=== PATIENT | male | born 1940 | race Caucasian/White ===

== ENCOUNTER 2017-05-21 07:32 | Emergency (ER) | payer OTHER ==
[~2017-05-21] VITALS: Ht 182.9 cm; Wt 117.9 kg
[~2017-05-21 07:32] MED LIST: ANTIVERT12.5 MG PO; ASPIRIN EC81 M1 PO; COZAAR 25 MG TA25 M2 PO; FISH OIL 1,0001 EAC5 PO; FISH OIL 1,2001 EAC4 PO; GLUCOPHAGE XR500 MG PO; GLUCOPHAGE500 MG PO; GLUCOSAMINE HC500 MG PO; GLUCOSAMINE1000 MG; GLUCOSAMINE1000 MG PO; GLUCOTROL5 MG PO; LISINOPRIL10 MG PO; LOPRESSOR 12.12.5 MG PO; LOPRESSOR25 PO; LOW DOSE ASPIRI81 M1 PO; MECLIZINE HCL12.5 MG PO; NITROGLYCERIN0.4 MG SUBLING; NORCO 5-325 TA1 EACH PO; PRAVACHOL40 MG PO; PRAVASTATIN SOD40 MG PO; SIMVASTATIN40 MG; VITAMIN D-32000 UNIT PO; ZOFRAN4 MG PO
[2017-05-21 07:53] LABS: ABSOLUTE BASOPHILS 0.1 thou/uL (0.0-0.2); ABSOLUTE EOSINOPHILS 0.1 thou/uL (0.0-0.7); ABSOLUTE LYMPHOCYTES 1.6 thou/uL (0.8-5.3); ABSOLUTE MONOCYTES 0.6 thou/uL (0.0-1.2); ABSOLUTE NEUTROPHILS 4.1 thou/uL (1.6-8.1); HEMOGLOBIN 16.9 gm/dL (14.0-18.0); LYMPHOCYTES 24.7 %; MCH 30.5 pg (26.0-34.0); MCHC 33.9 g/dL (28.0-37.0); MCV 90.1 fL (80.0-100.0); MONOCYTES 8.9 %; MPV 9.3 fl. (7.2-11.1); NUCLEATED RBCS 0 /100WBC; PLATELET COUNT* 159 thou/uL (150-400); POLYS 63.4 %; RBC 5.54 mil/uL (4.50-6.00); RDW-CV 13.8 % (10.5-14.5); WBC 6.4 thou/uL (4.0-11.0)
[2017-05-21 08:04] LABS: ANION GAP 8 mmol/L (7-16); BUN 17 mg/dL (7-18); CALCIUM 8.6 mg/dL (8.5-10.1); CHLORIDE 106 mmol/L (98-107); CO2 26 mmol/L (21-32); CREATININE 1.2 mg/dL (0.6-1.3); GLUCOSE 165 mg/dL (70-99); POTASSIUM 4.1 mmol/L (3.5-5.1); SODIUM 140 mmol/L (136-145)
[2017-05-21 08:05] LABS: INR 1.1
[2017-05-21 08:24] LABS: ALBUMIN 3.7 g/dL (3.4-5.0); ALKALINE PHOSPHATASE 83 U/L (46-116); CK-MB MASS 0.7 ng/mL (<0.5-3.6); LIPASE 87 U/L (73-393); MAGNESIUM 1.6 mg/dL (1.8-2.4); NT-PRO BRAIN NAT PEPTIDE 88 pg/mL (<300); SGOT 31 U/L (15-37); SGPT 34 U/L (30-65); TOTAL BILIRUBIN 0.8 mg/dL (<0.1-1.0); TOTAL PROTEIN 7.8 g/dL (6.4-8.2); TROPONIN-I LEVEL <0.06 ng/mL (<0.06)
[2017-05-21 10:16] VITALS: BP 156/88
--- NOTE | 2017-05-21 11:51 | EKG ---
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 : 1940 Requested By: Brian Christiansen Order Number: [id number] MD: Lance Dillon Measurements Intervals [place] Rate: 83 P: 12 [place]: 191 QRS: -21 QRSD: 81 T: 125 QT: 347 QTc: 408 Interpretive Statements Sinus rhythm Abnormal R-wave progression, late transition Inferior infarct, old Lateral leads are also involved Baseline wander in lead(s) I,II,aVR,V2 Compared to ECG 10/29/2015 06:42:09 Atrial premature complex(es) no longer present Possible ischemia no longer present Myocardial infarct finding still present Electronically Signed On 05-21-2017 11:50:59 MICROMATIC HONE OPERATOR by Lance Dillon [email or web address] <ELECTRONICALLY SIGNED> By: Lance Dillon MD, FACC 05/21/17 1150 0738 0738 Lance Dillon MD, FAC /EPI
--- NOTE | 2017-05-22 10:58 | EKG ---
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 05/22/17 1058 1001 00 Joselito Jones MD, FACC /EPI
== END 2017-05-21 10:26 | disposition home or self-care (01) ==
LOC: M.ERS 07:32
PROVIDERS: Family Medicine
DX: R07.89 Other chest pain (principal); E11.9 Type 2 diabetes mellitus without complications; Z87.891 Personal history of nicotine dependence; Z85.46 Personal history of malignant neoplasm of prostate; Z95.1 Presence of aortocoronary bypass graft

== ENCOUNTER 2017-10-10 13:59 | Inpatient (IN) | payer OTHER ==
[~2017-10-10] VITALS: Ht 182.9 cm; Wt 119.3 kg
[2017-10-10 14:02] VITALS: BP 176/85
[2017-10-10 14:17] LABS: ABSOLUTE BASOPHILS 0.1 thou/uL (0.0-0.2); ABSOLUTE EOSINOPHILS 0.1 thou/uL (0.0-0.7); ABSOLUTE LYMPHOCYTES 1.7 thou/uL (0.8-5.3); ABSOLUTE MONOCYTES 0.5 thou/uL (0.0-1.2); ABSOLUTE NEUTROPHILS 4.5 thou/uL (1.6-8.1); BASOPHILS 1.1 %; EOSINOPHILS 2.1 %; HEMATOCRIT 49.3 % (42.0-52.0); HEMOGLOBIN 16.7 gm/dL (14.0-18.0); LYMPHOCYTES 24.4 %; MCV 91.2 fL (80.0-100.0); MONOCYTES 7.7 %; MPV 8.5 fl. (7.2-11.1); NUCLEATED RBCS 0 /100WBC; PLATELET COUNT* 170 thou/uL (150-400); POLYS 64.7 %; RBC 5.41 mil/uL (4.50-6.00); RDW-CV 13.8 % (10.5-14.5)
[2017-10-10 14:27] LABS: ANION GAP 6 mmol/L (7-16); BUN 15 mg/dL (7-18); CALCIUM 8.8 mg/dL (8.5-10.1); CHLORIDE 104 mmol/L (98-107); CO2 31 mmol/L (21-32); CREATININE 1.2 mg/dL (0.6-1.3); GLUCOSE 199 mg/dL (70-99); POTASSIUM 3.9 mmol/L (3.5-5.1); SODIUM 141 mmol/L (136-145)
[2017-10-10 14:29] LABS: APTT 25.9 Seconds (25.0-31.3); INR 1.1; PROTIME 10.8 Seconds (9.20-11.50)
[2017-10-10 14:45] LABS: ALBUMIN 3.6 g/dL (3.4-5.0); ALKALINE PHOSPHATASE 80 U/L (46-116); CK-MB MASS 1.2 ng/mL (<0.5-3.6); LIPASE 86 U/L (73-393); MAGNESIUM 1.6 mg/dL (1.8-2.4); NT-PRO BRAIN NAT PEPTIDE 194 pg/mL (<300); SGOT 36 U/L (15-37); SGPT 38 U/L (30-65); TOTAL BILIRUBIN 0.6 mg/dL (<0.1-1.0); TOTAL PROTEIN 7.6 g/dL (6.4-8.2); TROPONIN-I LEVEL <0.06 ng/mL (<0.06)
[2017-10-10 16:17] VITALS: BP 165/88
--- NOTE | 2017-10-10 16:54 | EKG ---
[place] [address] ELECTROCARDIOGRAM REPORT Name: MELVIN RAMOS Room: [address] IN .R.#: [id number] Admission: 10/10/17 Attend Phys: Morgan Clark Discharge: Date of : 44 Report #: [id number] THIS REPORT FOR: //name// [facility] ED Test Date: 2017-10-10 Test Time: 14:02:25 Pat Name: MELVIN RAMOS Department: Room: Gender: Senior Center Director: Darwin REYNOLDS : 1940 Requested By: Brian Christiansen Order Number: [id number] MD: Syed Colvin Measurements Intervals [place] Rate: 72 P: 12 CT: 185 QRS: -18 QRSD: 87 T: 143 QT: 373 QTc: 409 Interpretive Statements Sinus rhythm Inferior infarct, old Lateral leads are also involved Compared to ECG 05/21/2017 10:01:01 No significant changes Electronically Signed On 10-10-2017 16:54:35 CDT by Syed Colvin [email or web address] <ELECTRONICALLY SIGNED> By: Syed Colvin MD, [facility] 10/10/17 5744 1402 140 Syed Colvin MD, [facility] /EPI
[2017-10-10] MEDS ORDERED: LOPRESSOR25 PO (18:10)
--- NOTE | 2017-10-10 18:23 | NUR ---
ASSUMED CARE OF PATIENT AT 1620 WHEN TRANSFERRED TO ROOM 222 FROM EMERGENCY DEPARTMENT. PATIENT AWAKE, ALERT, AND ORIENTED APPROPRIATELY. ADMISSION ASSESSMENT AND DOCUMENTATION COMPLETED AND CHARTED. VITAL SIGNS STABLE. OXYGEN SATURATION WITHIN NORMAL LIMITS ON 2 LPM PER NASAL CANULA. PATIENT IS TO TRANSFER AND AMBULATE WITH STANDBY ASSISTANCE FROM STAFF, HAS BEEN EDUCATED ON HOW TO USE CALL LIGHT APPROPRIATELY. DENIES NEEDS AT THIS TIME. CALL LIGHT WITHIN REACH. NURSING WILL CONTINUE TO MONITOR.
[2017-10-10 20:00] VITALS: BP 147/68
[2017-10-11] VITALS (8 sets, daily range): BP systolic 119–169; BP diastolic 65–97
--- NOTE | 2017-10-11 05:03 | NUR ---
ASSUMED CARE AROUND 1930. PT A/OX4 AND PLEASANT. TELE MONITOR TRACING SR. VSS, AFEBRILE. ON ROOM AIR. REPORTS AYALA. IV SALINE LOCKED. REPORTED INTERMITTENT "SHARP" CHEST PAIN THAT IS WORSE WHEN HE PRESSES ON LEFT SIDE OF CHEST. UP SBA. SEE CHARTING. CALL LIGHT IN REACH, WILL CONTINUE WITH PLAN OF CARE.
--- NOTE | 2017-10-11 10:42 | EKG ---
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 : 1940 Requested By: Brian Christiansen Order Number: [id number] MD: Joselito Jones Measurements Intervals [place] Rate: 68 P: 12 [place]: 193 QRS: -26 QRSD: 83 T: 135 QT: 392 QTc: 417 Interpretive Statements Sinus rhythm Inferior infarct, old septal infarct, old Lateral leads are also involved Compared to ECG 10/10/2017 14:02:25 No significant changes Electronically Signed On 10-11-2017 10:41:54 CDT by Joselito Jones [email or web address] <ELECTRONICALLY SIGNED> By: Joselito Jones MD, [facility] 10/11/17 1041 0515 0515 Joselito Jones MD, [facility] /EPI
--- NOTE | 2017-10-11 11:02 | NUR ---
INITIAL ASSESSMENT: Pt evaluated for d/c planning needs. Reviewed chart and spoke with nurse and pt. Pt is alert and oriented. Pt lives alone and was independent with ADL's prior to admission to the hospital. Pt remains active in the community and is still driving. Pt said he was hospitalized at [place] about 9 months ago and returned home with home health. Pt does not recall name of agency. Pt has walker and cane at home. Pt plans on returning home on d/c from hospital. Will remain available to assist as needed.
--- NOTE | 2017-10-11 17:54 | 2DMMODE ---
[place] [address] 2 D/M-MODE ECHOCARDIOGRAM Name: MELVIN RAMOS Room: [facility] IN [facility]#: [id number] Admission: 10/10/17 Attend Phys: Von Licea Discharge: Date of : 44 Date of Service: 10/11/17 1753 Report #: [id number] THIS REPORT FOR: //name// APPROVED REPORT Study performed: 10/11/2017 13:13:40 EXAM: Comprehensive 2D, Doppler, and color-flow Echocardiogram Patient Location: In-Patient Room #: 222 Status: routine BSA: 2.41 HR: 67 bpm BP: 141/65 mmHg Rhythm: NSR Other Information Study Quality: Fair Indications CAD Chest Pain 2D Dimensions LVEF(%): 73.69 (>50%) IVSd: 15.07 (7-11mm) LVOT Diam: 23.06 (18-24mm) LVDd: 56.60 mm PWd: 13.42 (7-11mm) Ascending Ao: 36.52 (22-36mm) LVDs: 32.15 (25-40mm) Aortic Root: 36.47 mm Queen's LVEF: 73.69 % Volumes Left Atrial Volume (Systole) LA ESV Index: 22.90 mL/m2 Aortic Valve AoV Peak Mitchell.: 1.27 m/s AO Peak Gr.: 6.46 mmHg LVOT Max P.21 mmHg AO Mean Gr.: 3.04 mmHg LVOT Mean P.29 mmHg LVOT Max V: 1.14 m/s AO V2 VTI: 23.46 cm LVOT Mean V: 0.67 m/s DEMARIO (VTI): 3.89 cm2 LVOT V1 VTI: 21.86 [place] [address] 2 D/M-MODE ECHOCARDIOGRAM Name: MELVIN RAMOS Room: [address] IN .R.#: [id number] Admission: 10/10/17 Attend Phys: Von Licea Discharge: Date of : 44 Date of Service: 10/11/17 1753 Report #: [id number] E/A Ratio: 0.84 MV Decel. Time: 246.56 ms MV E Max Mitchell.: 0.87 m/s MV PHT: 71.50 ms MVA (PHT): 3.08 cm2 TDI E/Lateral E': 10.88 E/Medial E': 12.43 Medial E' Mitchell.: 0.07 m/s Lateral E' Mitchell.: 0.08 m/s Pulmonary Valve PV Peak Mitchell.: 1.16 m/s PV Peak Gr.: 5.36 mmHg Left Ventricle The left ventricle is normal size. There is normal LV segmental wall motion. Moderate concentric left ventricular hypertrophy. Left ventricular systolic function is normal. The left ventricular ejection fraction is within the normal range. LVEF is 55-60%. Grade I - abnormal relaxation pattern. Right Ventricle The right ventricle is normal size. The right ventricular systolic function is normal. Atria The left atrium size is normal. The right atrium size is normal. Aortic Valve The aortic valve is normal in structure. No aortic regurgitation is present. There is no aortic valvular stenosis. Mitral Valve The mitral valve is normal in structure. Trace mitral regurgitation. No evidence of mitral valve stenosis. Tricuspid Valve The tricuspid valve is normal in structure. There is no tricuspid valve regurgitation noted. Pulmonic Valve The pulmonary valve is normal in structure. Trace pulmonic regurgitation[place] [address] 2 D/M-MODE ECHOCARDIOGRAM Name: MELVIN RAMOS Room: [address] IN ..#: [id number] Admission: 10/10/17 Attend Phys: Von Licea Discharge: Date of : 44 Date of Service: 10/11/17 1753 Report #: [id number] The aortic root is normal in size. IVC is not well visualized. Pericardium There is no pericardial effusion. <Conclusion> Moderate concentric left ventricular hypertrophy. LVEF is 55-60%. <ELECTRONICALLY SIGNED> By: Joselito Jones MD, [facility] 10/11/17 [phone] 52 Joselito Jones MD, FAC /INF
--- NOTE | 2017-10-11 18:02 | NUR ---
PT GIVEN DISCHARGE INSTRUCTIONS AT THIS TIME. PT HAD MRI, MRA, CTA CHEST, US CAROTIDS, AND ECHO ALL NEGATIVE THIS SHIFT. PT REFERRED TO [facility] FOR [facility]GE. PT VERBALIZES UNDERSTANDING OF DISCHARGE INSTRUCTIONS. PT DC PER W/C WITH EX- TO PRIVATE VEHICLE. NO OTHER CONCERNS AT THIS TIME.
[2017-10-12 02:10] LABS: GLYCOHEMOGLOBIN (HGB A1C) 6.5 % (4.8-5.6)
--- NOTE | 2017-10-23 09:40 | CON ---
[address] [address] CONSULTATION Name: MELVIN RAMOS Room: [address] IN M.R.#: [id number] Admission: 10/10/17 Attend Phys: Morgan Clark Discharge: 10/11/17 Date of : 44 Report #: [id number] THIS REPORT FOR: //name// CC: Yan Licea DATE OF SERVICE: 10/11/2017 HISTORY OF PRESENT ILLNESS: This is a 77-year-old male patient who was evaluated by me to determine any neurological etiology for the patient's dizziness. The patient gives a history that he started having chest pain a few days ago. It was intermittent. He thought his chest was vibrating, and yesterday, he had an episode where he was very ataxic and dizzy. He is better, but not fully recovered from it. He does not have any associated ENT symptom, and his symptoms were at least moderately severe. They came spontaneously without any trauma, and he does not know any aggravating or relieving factors for it. REVIEW OF SYSTEMS: Indicates that this patient has a history of knee problems. He had a heart surgery. He had a previous cataract surgery. He has a history of diabetes mellitus. He does not know what his blood sugar was during that time. He does have a history of high blood pressure and prostate cancer. He takes multiple medications, takes aspirin and he also takes diabetes medicines. He is otherwise not complaining of any new eye, ENT, respiratory, GI, , musculoskeletal, constitutional, dermatological, hematological, psychiatric, throat, allergic symptom associated with present symptomatology. He does have a baseline knee problem. PAST MEDICAL HISTORY: Positive for cardiac disease. FAMILY HISTORY: Negative for any early age stroke. SOCIAL HISTORY: He used to smoke, but does not smoke and does not drink much alcohol. PHYSICAL EXAMINATION: Indicates he is alert, responsive, able to follow simple and complex command. His higher functions and cranial nerve examination appear unremarkable. His memory, fund of knowledge is at his baseline. His speech is unremarkable. He has symmetrical strength, sensation, reflexes and tone in all four extremities. His reflexes in the lower extremity could not be elicited. He has a good position sense in both lower extremities. He has no cerebellar sign or papilledema. His hearing and vision look adequate. He has no meningeal sign or thyroid mass. His pulses are difficult to feel. He has no edema, cyanosis or jaundice. His cardiac examination basically is unremarkable. No respiratory difficulty or rhonchi was noticed on either side. He is a well-developed individual who does not have any dysmorphic features of eyes, [place] [address] CONSULTATION Name: MELVIN RAMOS Room: [address] IN M.R.#: [id number] Admission: 10/10/17 Attend Phys: Morgan Clark Discharge: 10/11/17 Date of : 44 Report #: [id number] ears and face. Blood pressure is 141/65, respirations 18, pulse is 66, temperature is 97.6. LABORATORY DATA: His white count is 7. His blood sugar on admission was 199. He did have a CT scan of the head, which showed mild atrophy, but nothing drastic. His MRI is not done yet. IMPRESSION: Episode of dizziness. I think neurological etiology need to be excluded, but because it is associated with chest pain, I will suggest working him off to exclude other etiology, especially any pathology in the chest including any aortic abnormality, etc. I will defer that evaluation and management to you and Cardiology. Neurologically, he is already scheduled for an MRI in the carotid, and I believe that is all he needs. If that is unremarkable, I do not think we need to do much neurologically, and he mainly needs workup and management of his systemic problems. I discussed all of it with the patient. RECOMMENDATIONS: We will await the MRI and MRA and if that is negative, I will suggest focusing on evaluating his systemic cause for his problem. Thank you very much for this referral. <ELECTRONICALLY SIGNED> By: Young Alaniz MD 10/23/17 0940 1000 1538Young Alaniz MD /nt
== END 2017-10-11 18:25 | disposition home or self-care (01) | DRG 149 ==
LOC: M.ERS 13:59 → M.TBA-ER 15:42 → M.2W 15:42
PROVIDERS: Family Medicine; Internal Medicine; ADMIT Internal Medicine
DX: H81.90 Unspecified disorder of vestibular function, unspecified ear (principal); R07.89 Other chest pain; I25.10 Atherosclerotic heart disease of native coronary artery without angina pectoris; E11.9 Type 2 diabetes mellitus without complications; I10 Essential (primary) hypertension; Z98.42 Cataract extraction status, left eye; Z98.41 Cataract extraction status, right eye; Z79.82 Long term (current) use of aspirin; Z79.899 Other long term (current) drug therapy; Z85.46 Personal history of malignant neoplasm of prostate; Z79.84 Long term (current) use of oral hypoglycemic drugs; Z95.1 Presence of aortocoronary bypass graft; Z91.81 History of falling

== ENCOUNTER 2019-08-28 14:20 | Observation (INO) | payer OTHER ==
[~2019-08-28] VITALS: Ht 182.9 cm; Wt 113.4 kg
[2019-08-28 14:24] VITALS: BP 176/83
[2019-08-28] MEDS ORDERED: LIPITOR40 MG PO (14:36)
[2019-08-28] MEDS ORDERED: B COMPLEX1 EACH PO (14:36)
[2019-08-28] MEDS ORDERED: SYMBICORT160 MCG/4. INH (14:37)
[2019-08-28 14:59] LABS: ABSOLUTE BASOPHILS 0.1 thou/uL (0.0-0.2); ABSOLUTE EOSINOPHILS 0.2 thou/uL (0.0-0.7); ABSOLUTE LYMPHOCYTES 1.8 thou/uL (0.8-5.3); ABSOLUTE MONOCYTES 0.6 thou/uL (0.0-1.2); ABSOLUTE NEUTROPHILS 4.6 thou/uL (1.6-8.1); BASOPHILS 1.2 %; EOSINOPHILS 2.8 %; HEMATOCRIT 47.5 % (42.0-52.0); HEMOGLOBIN 16.3 gm/dL (14.0-18.0); LYMPHOCYTES 24.4 %; MCHC 34.3 g/dL (28.0-37.0); MCV 90.4 fL (80.0-100.0); MONOCYTES 8.8 %; MPV 9.4 fl. (7.2-11.1); NUCLEATED RBCS 0 /100WBC; PLATELET COUNT* 158 thou/uL (150-400); POLYS 62.8 %; RBC 5.26 mil/uL (4.50-6.00); RDW-CV 13.3 % (10.5-14.5); WBC 7.3 thou/uL (4.0-11.0)
[2019-08-28 15:04] LABS: CALCIUM 8.8 mg/dL (8.5-10.1); POTASSIUM 4.2 mmol/L (3.5-5.1)
[2019-08-28 15:06] LABS: INR 1.1; PROTIME 11.7 Seconds (9.20-11.50)
[2019-08-28 15:19] LABS: ALBUMIN 3.3 g/dL (3.4-5.0); CK-MB MASS 0.8 ng/mL (<0.5-3.6); MAGNESIUM 1.3 mg/dL (1.8-2.4); TOTAL BILIRUBIN 0.8 mg/dL (<0.1-1.0); TOTAL PROTEIN 7.3 g/dL (6.4-8.2)
--- NOTE | 2019-08-28 16:39 | EKG ---
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 : 1940 Requested By: Brian Christiansen Order Number: [id number] MD: Syed Colvin Measurements Intervals [place] Rate: 63 P: 39 [place]: 175 QRS: -19 QRSD: 86 T: 138 QT: 368 QTc: 377 Interpretive Statements Sinus rhythm Atrial premature complex Inferior infarct, old Lateral leads are also involved Compared to ECG 10/11/2017 05:15:23 Atrial premature complex(es) now present Myocardial infarct finding still present Electronically Signed On 08-28-2019 16:37:20 CDT by Syed Colvin [email or web address] <ELECTRONICALLY SIGNED> By: Syed Colvin MD, FACC 08/28/19 1637 1424 1424 Syed Colvin MD, FACC /EPI
[2019-08-28 16:56] VITALS: BP 174/87
--- NOTE | 2019-08-28 17:11 | NUR ---
PT ORIENTED TO ROOM AND UNIT. BED LOW AND LOCKED, SIDE RAILS UPX3 CALL LIGHT IN REACH, TELE APPLIED. WILL CONTINUE TO ASSESS.
[2019-08-28 20:30] VITALS: BP 145/73
[2019-08-29 00:09] VITALS: BP 129/72
[2019-08-29 04:00] VITALS: BP 154/95
--- NOTE | 2019-08-29 04:01 | NUR ---
ASSUMED CARE FROM DAY SHIFT PT C/O CHEST PRESSURE MYLANTA AND TYLENOL GIVEN, CARDIAC MONTIOR SHOWS NSR , SOON PT WAS SLEEPING ON SIDE AND RESTED UNITL 0230 WHEN AWAKE AND AGIN C/O SAME PAIN , MEDICATION REPEATED AND PT THEN FELL ASLEEP. WILL CONTINUE TO MONITOR AND REPORT CHANGES.
[2019-08-29 04:28] LABS: HEMATOCRIT 44.7 % (42.0-52.0); HEMOGLOBIN 15.4 gm/dL (14.0-18.0); MCH 31.3 pg (26.0-34.0); MCHC 34.5 g/dL (28.0-37.0); MCV 90.5 fL (80.0-100.0); MPV 9.4 fl. (7.2-11.1); RBC 4.94 mil/uL (4.50-6.00); RDW-CV 13.5 % (10.5-14.5); WBC 6.9 thou/uL (4.0-11.0)
[2019-08-29 04:42] LABS: ANION GAP 6 mmol/L (7-16); BUN 12 mg/dL (7-18); CALCIUM 9.3 mg/dL (8.5-10.1); CHLORIDE 106 mmol/L (98-107); CO2 29 mmol/L (21-32); GLUCOSE 157 mg/dL (70-99); MAGNESIUM 1.6 mg/dL (1.8-2.4); SODIUM 141 mmol/L (136-145); TROPONIN-I LEVEL <0.06 ng/mL (<0.06)
--- NOTE | 2019-08-29 07:10 | NUR ---
CHANGE OF SHIFT REPORT GIVEN PATIENT SEEN AT BEDSIDE, IN BED ASLEEP ASSUMED PATIENT CARE
[2019-08-29 08:00] VITALS: BP 146/83
[2019-08-29] MEDS ORDERED: PANTOPRAZOLE SO40 M1 PO (10:23)
[2019-08-29 11:56] VITALS: BP 146/83
[2019-08-29 12:10] LABS: CALCIUM 8.8 mg/dL (8.5-10.1); CREATININE 1.2 mg/dL (0.6-1.3); MAGNESIUM 1.6 mg/dL (1.8-2.4); POTASSIUM 4.4 mmol/L (3.5-5.1)
--- NOTE | 2019-08-29 12:15 | NUR ---
patient discharged to home all discharge instructions given, acknowledged, signed copies given iv and heart monitor removed personal belongigns returned patient assisted out to [facility]
--- NOTE | 2019-08-29 16:12 | CON ---
[address] [address] CONSULTATION Name: RICHARDMELVIN Darwin Room: [address] Toñito Cordero#: [id number] Admission: 08/28/19 Attend Phys: Samuel Dawson, Discharge: 08/29/19 Date of : 44 Report #: [id number] THIS REPORT FOR: //name// cc: Yan Delarosa MD, Dean L. MD ~ THIS REPORT FOR: //name// CC: Yan Dawson INDICATION: Chest pain. HISTORY OF PRESENT ILLNESS: The patient is a very pleasant 79-year-old gentleman with history of 5-vessel coronary artery bypass grafting in 2007 after he was found to have left main coronary artery disease. He has preserved left ventricular systolic function. Stress testing approximately a year and a half ago showed normal LV function and no evidence of ischemia or infarct. The patient has had some ongoing atypical midsternal chest discomfort, which worsened yesterday morning. He presented to the Emergency Room for further evaluation after being instructed to do so by our office. EKG shows sinus rhythm with some nonspecific biphasic T waves that are unchanged from previous EKGs. His initial cardiac enzymes were unremarkable. The patient's pain persisted after admission for several hours. Ultimately, he received some Tylenol and Mylanta with some partial relief. He has ruled out for myocardial infarction. He continues to have some mild discomfort this morning. He appears stable. He is without other cardiac complaint at this time. PAST MEDICAL HISTORY: 1. Coronary artery disease with 5-vessel coronary artery bypass grafting in 2007. 2. Essential hypertension. 3. Mixed hyperlipidemia. 4. Type 2 diabetes mellitus. 5. Nonocclusive carotid vascular disease. 6. Obstructive sleep apnea. 7. Orthostatic hypotension. PAST SURGICAL HISTORY: 1. Five-vessel coronary artery bypass grafting in 2007. 2. Arthroscopic knee surgery in 2008. 3. Ankle fracture repair in 2011. 4. Vasectomy. FAMILY HISTORY: Positive for hypertension, dyslipidemia, [place] [address] CONSULTATION Name: MELVIN RAMOS Room: [address] Toñito Cordero#: [id number] Admission: 08/28/19 Attend Phys: Samuel Dawson, Discharge: 08/29/19 Date of : 44 Report #: [id number] SOCIAL HISTORY: The patient quit smoking many years ago. He does not drink alcohol. ALLERGIES: LISINOPRIL AND SIMVASTATIN. CURRENT MEDICATIONS: Aspirin 81 mg daily, Symbicort 1 puff b.i.d., vitamin D3 is 1000 units daily, Glucotrol 5 mg daily, glucosamine 2000 mg daily, losartan 50 mg daily, metformin XR 500 mg at bedtime, metoprolol tartrate 12.5 mg daily, fish oil 1200 mg b.i.d., vitamin B complex 1 tablet daily. REVIEW OF SYSTEMS: He notes midsternal chest discomfort. He has a history of diabetes. He reports arthritis without connective tissue disease. He has medical allergies outlined above. Otherwise, 14-point review of systems was unremarkable. PHYSICAL EXAMINATION: VITAL SIGNS: Blood pressure 154/95, pulse 74 and regular. GENERAL: This is a pleasant gentleman who is in no distress. Mood and affect appropriate. HEENT: Extraocular muscles intact. Mucous membranes are moist. NECK: Shows no jugular venous distention. I do not appreciate carotid bruit. CHEST: Reveals clear lung medina without wheezes, rales or rhonchi. CARDIOVASCULAR: Reveals a regular rhythm with normal S1 and S2. I do not appreciate gallop or murmur. ABDOMEN: Reveals normal bowel sounds. The abdomen is soft and nontender. EXTREMITIES: Shows no edema. Peripheral pulses 2+ and palpable. SKIN: Warm and dry. LABORATORY DATA: A 12-lead EKG shows sinus rhythm with biphasic T waves as outlined above. These are unchanged from previous EKGs. Labs are reviewed. Sodium 141, potassium 4.0, chloride 106, bicarbonate 29, BUN 12, creatinine 1.0, serum glucose 157. Amylase 28, lipase 82, total bilirubin 0.8, direct bilirubin 0.2, calcium 9.3, magnesium 1.6, alkaline phosphatase 122, ALT 40, total protein 7.3, albumin 3.3. EGFR 72. Troponin less than 0.06 on 3 separate occasions. NT-proBNP 307. Coags are normal. White blood cell count 6.9, hemoglobin 15.4, platelet count 141,000. Chest x-ray shows previous surgical changes with no acute cardiopulmonary abnormality. IMPRESSION AND RECOMMENDATIONS: 1. Chest pain, somewhat atypical. The patient has ruled out for myocardial infarction. I am concerned that this may have a gastroesophageal origin. I have ordered a Gastrointestinal cocktail. Pending the response to this, [place] [address] CONSULTATION Name: MELVIN RAMOS Room: [address] Toñito Cordero#: [id number] Admission: 08/28/19 Attend Phys: Samuel TellyYvon Dawson, Discharge: 08/29/19 Date of : 44 Report #: [id number] consider whether further stress testing is indicated. Continue current treatment. 2. Coronary artery disease. Continue daily aspirin. Continue risk factor modification. 3. Hyperlipidemia. Continue atorvastatin at current dose. Recommend goal LDL of 70 or less. 4. Essential hypertension. Blood pressure mildly elevated at present. We will make adjustments to medications as needed. 5. Type 2 diabetes mellitus per primary physician. 6. Moderate nonocclusive left carotid stenosis, clinically stable. Follow with serial Doppler studies. 7. Obstructive sleep apnea, CPAP has been recommended, although he has difficulty with this. 8. Orthostatic hypotension, presently stable. <ELECTRONICALLY SIGNED> By: Syed Colvin MD, FACC 08/29/19 1612 0821 0906Syed Colvin MD, FACC /nt
== END 2019-08-29 12:12 | disposition home or self-care (01) ==
LOC: M.ERS 14:20 → M.2W 15:27 → M.TBA-ER 15:27 → M.2W 16:48
PROVIDERS: Family Medicine; ADMIT Family Medicine
DX: R07.89 Other chest pain (principal); I10 Essential (primary) hypertension; I25.10 Atherosclerotic heart disease of native coronary artery without angina pectoris; E66.01 Morbid (severe) obesity due to excess calories; E83.42 Hypomagnesemia; Z87.891 Personal history of nicotine dependence

== ENCOUNTER 2020-07-30 13:01 | Emergency (ER) | payer OTHER ==
[~2020-07-30] VITALS: Ht 182.9 cm; Wt 115.2 kg
[~2020-07-30 13:01] MED LIST changes: +B COMPLEX1 EACH PO; +BLOOD GLUCOSE1 EAC3 MISCELL; +BLOOD GLUCOSE1 EACH MISCELL; +FREESTYLE LANC1 EACH MISCELL; +LIPITOR40 MG PO; +METFORMIN HCL500 M3 PO; +PANTOPRAZOLE SO40 M1 PO; +SYMBICORT160 MCG/4. INH; +TOPROL XL25 MG PO; +VITAMIN D-40010 MCG SUBQ
[2020-07-30 13:33] LABS: ABSOLUTE BASOPHILS 0.1 thou/uL (0.0-0.2); ABSOLUTE EOSINOPHILS 0.1 thou/uL (0.0-0.7); ABSOLUTE LYMPHOCYTES 2.4 thou/uL (0.8-5.3); ABSOLUTE MONOCYTES 0.8 thou/uL (0.0-1.2); ABSOLUTE NEUTROPHILS 4.8 thou/uL (1.6-8.1); BASOPHILS 0.7 %; EOSINOPHILS 1.6 %; HEMATOCRIT 47.8 % (42.0-52.0); HEMOGLOBIN 15.9 gm/dL (14.0-18.0); LYMPHOCYTES 29.2 %; MCH 29.7 pg (26.0-34.0); MCHC 33.2 g/dL (28.0-37.0); MCV 89.5 fL (80.0-100.0); MONOCYTES 9.7 %; MPV 8.9 fl. (7.2-11.1); NUCLEATED RBCS 0 /100WBC; PLATELET COUNT* 170 thou/uL (150-400); POLYS 58.8 %; RBC 5.34 mil/uL (4.50-6.00); RDW-CV 14.1 % (10.5-14.5); WBC 8.2 thou/uL (4.0-11.0)
[2020-07-30 13:39] LABS: CALCIUM 8.6 mg/dL (8.5-10.1); CREATININE 1.2 mg/dL (0.6-1.3); POTASSIUM 3.6 mmol/L (3.5-5.1)
[2020-07-30 13:41] LABS: APTT 25.1 Seconds (25.0-31.3); INR 1.1; PROTIME 11.4 Seconds (9.20-11.50)
[2020-07-30 13:51] LABS: ALBUMIN 3.6 g/dL (3.4-5.0); CK-MB MASS 0.9 ng/mL (<0.5-3.6); MAGNESIUM 1.2 mg/dL (1.8-2.4); TOTAL BILIRUBIN 0.9 mg/dL (<0.1-1.0); TOTAL PROTEIN 7.9 g/dL (6.4-8.2)
[2020-07-30 14:42] VITALS: BP 143/72
--- NOTE | 2020-07-30 15:54 | EKG ---
[place] [address] ELECTROCARDIOGRAM REPORT Name: MELVIN RAMOS Room: [facility]#: [id number] Admission: 07/30/20 Attend Phys: Discharge: 07/30/20 Date of : 44 Date of Service: 07/30/20 1308 Report #: [id number] THIS REPORT FOR: //name// [facility] ED Test Date: 2020-07-30 Test Time: 13:08:41 Pat Name: MELVIN RAMOS Department: Room: Gender: Health Outcomes Liaison: [facility] : 1940 Requested By: Brian Christiansen Order Number: [id number] MD: Joselito Jones Measurements Intervals [place] Rate: 91 P: [place]: QRS: -2 QRSD: 92 T: 132 QT: 484 QTc: 596 Interpretive Statements sinus arrhythmia poor r wave progression Inferior infarct, old Prolonged QT interval Baseline wander in lead(s) V1,V3 Compared to ECG 08/28/2019 14:24:27 Prolonged QT interval now present Sinus rhythm no longer present Myocardial infarct finding still present Electronically Signed On 07-30-2020 15:54:03 CDT by Joselito Jones [email or web address] <ELECTRONICALLY SIGNED> By: Joselito Jones MD, FACC 07/30/20 1554 1308 1308 Joselito Jones MD, [facility] /EPI
--- NOTE | 2020-07-30 16:37 | EKG ---
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: : 1940 Requested By: Brian Christiansen Order Number: [id number] Racheal MD: Syed Colvin Measurements Intervals [place] Rate: 87 P: -9 VT: 151 QRS: -12 QRSD: 97 T: 155 QT: 351 QTc: 423 Interpretive Statements Sinus rhythm Premature atrial complexes Nonspecific ST-T wave changes Inferior infarct, old, possible Baseline wander in lead(s) V2 Compared to ECG 07/30/2020 13:08:41 Significant changes not noted Electronically Signed On 07-30-2020 16:36:52 CDT by Syed Colvin [email or web address] <ELECTRONICALLY SIGNED> By: Syed Colvin MD, FAC 07/30/20 1636 1420 1420 Syed Colvin MD, [facility] /EPI
== END 2020-07-30 14:43 | disposition home or self-care (01) ==
LOC: M.ERS 13:01
PROVIDERS: Family Medicine
DX: R07.89 Other chest pain (principal); R06.02 Shortness of breath; Z98.890 Other specified postprocedural states; Z98.61 Coronary angioplasty status; E11.9 Type 2 diabetes mellitus without complications; I10 Essential (primary) hypertension; Z85.46 Personal history of malignant neoplasm of prostate; Z79.899 Other long term (current) drug therapy; Z79.82 Long term (current) use of aspirin; Z87.891 Personal history of nicotine dependence

== ENCOUNTER → 2021-02-17 | Outpatient (CLI) | payer OTHER ==
[2021-02-17 08:36] LABS: CHOLESTEROL 134 mg/dL (<200); HDL CHOLESTEROL 45 mg/dL (>40); LDL CHOLESTEROL 67 mg/dL (<100); TRIGLYCERIDE 112 mg/dL (<150); VLDL 22 mg/dL (<40)
[2021-02-17 08:45] LABS: SERUM ASSESSMENT Clear
== END ==
LOC: M.LAB 07:59
PROVIDERS: ATTEND Registered Nurse
DX: E78.00 Pure hypercholesterolemia, unspecified (principal)

== ENCOUNTER → 2021-03-02 | Outpatient (CLI) | payer OTHER | LOC: M.CT 07:09 | PROVIDERS: ATTEND Registered Nurse | DX: J92.9 Pleural plaque without asbestos (principal); N28.1 Cyst of kidney, acquired; I25.10 Atherosclerotic heart disease of native coronary artery without angina pectoris; I10 Essential (primary) hypertension ==

== ENCOUNTER → 2021-04-01 | Outpatient (CLI) | payer OTHER | LOC: M.PC 08:23 | PROVIDERS: ATTEND Anesthesiology Pain Medicine | DX: C61 Malignant neoplasm of prostate (principal); N28.1 Cyst of kidney, acquired; J98.4 Other disorders of lung; R07.89 Other chest pain; I25.10 Atherosclerotic heart disease of native coronary artery without angina pectoris; E11.42 Type 2 diabetes mellitus with diabetic polyneuropathy; I10 Essential (primary) hypertension; E78.00 Pure hypercholesterolemia, unspecified; G47.30 Sleep apnea, unspecified ==

== ENCOUNTER 2021-06-02 14:23 | Emergency (ER) | payer OTHER ==
[~2021-06-02] VITALS: Ht 182.9 cm; Wt 99.3 kg
[2021-06-02 15:18] LABS: ABSOLUTE EOSINOPHILS 0.2 thou/uL (0.0-0.7); ABSOLUTE LYMPHOCYTES 1.7 thou/uL (0.8-5.3); ABSOLUTE MONOCYTES 0.5 thou/uL (0.0-1.2); ABSOLUTE NEUTROPHILS 2.5 thou/uL (1.6-8.1); BASOPHILS 0.8 %; EOSINOPHILS 4.4 %; HEMATOCRIT 42.7 % (42.0-52.0); HEMOGLOBIN 14.2 gm/dL (14.0-18.0); MCH 29.3 pg (26.0-34.0); MCHC 33.3 g/dL (28.0-37.0); MONOCYTES 10.2 %; NUCLEATED RBCS 0 /100WBC; PLATELET COUNT* 183 thou/uL (150-400); POLYS 50.6 %; RBC 4.85 mil/uL (4.50-6.00); RDW-CV 14.9 % (10.5-14.5)
[2021-06-02 15:33] LABS: CALCIUM 8.7 mg/dL (8.5-10.1); CREATININE 1.2 mg/dL (0.6-1.3); POTASSIUM 3.7 mmol/L (3.5-5.1)
[2021-06-02 15:44] LABS: ALBUMIN 3.5 g/dL (3.4-5.0); TOTAL BILIRUBIN 0.7 mg/dL (<0.1-1.0); TOTAL PROTEIN 7.4 g/dL (6.4-8.2)
--- NOTE | 2021-06-02 16:06 | EKG ---
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: [facility] [place] : 1940 Requested By: Brian Christiansen Order Number: [id number] MD: Joselito Jones Measurements Intervals [place] Rate: 90 P: 3 MO: 176 QRS: -20 QRSD: 84 T: 120 QT: 310 QTc: 380 Interpretive Statements Sinus rhythm artifact Inferior infarct, old Abnormal T, consider ischemia, anterior leads Lateral leads are also involved Compared to ECG 07/30/2020 14:20:37 Atrial premature complex(es) no longer present Myocardial infarct finding still present Electronically Signed On 06-02-2021 16:06:13 JEWELRY DRILL OPERATOR by Joselito Jones [email or web address] <ELECTRONICALLY SIGNED> By: Joselito Jones MD, [facility] 06/02/21 1606 1429 1429 Joselito Jones MD, [facility] /EPI
[2021-06-02 17:09] VITALS: BP 115/75
== END 2021-06-02 17:09 | disposition home or self-care (01) ==
LOC: M.ERS 14:23
PROVIDERS: Family Medicine
DX: R07.89 Other chest pain (principal); R06.02 Shortness of breath; M79.89 Other specified soft tissue disorders; I10 Essential (primary) hypertension; E11.9 Type 2 diabetes mellitus without complications; Z98.890 Other specified postprocedural states; Z96.653 Presence of artificial knee joint, bilateral; Z85.46 Personal history of malignant neoplasm of prostate; Z79.899 Other long term (current) drug therapy; Z79.82 Long term (current) use of aspirin